=== PATIENT | female | born 1995 | race Caucasian/White ===

== ENCOUNTER 2017-07-31 07:24 | Inpatient (IN) | payer OTHER ==
[~2017-07-31] VITALS: Ht 154.9 cm; Wt 190.0 kg
[2017-07-31] MEDS ORDERED: PRENATABS FA T1 EACH PO (08:10)
[2017-07-31] MEDS ORDERED: FE C PLUS TABL1 EACH PO (08:10)
[2017-07-31] MEDS ORDERED: FE C TABLET1 EACH PO (08:11)
== END 2017-08-02 13:20 | DRG 767 ==
LOC: OB/GYN 07:24 → LDR 07:56 → OB/GYN 07:56
PROC: 10E0XZZ Delivery of Products of Conception, External Approach (ICD-10-PCS; principal; 2017-07-31)
PROC: 0KQM0ZZ Repair Perineum Muscle, Open Approach (ICD-10-PCS; 2017-07-31)
PROC: 10907ZC Drainage of Amniotic Fluid, Therapeutic from Products of Conception, Via Natural or Artificial Opening (ICD-10-PCS; 2017-07-31)
PROC: 4A033R1 Measurement of Arterial Saturation, Peripheral, Percutaneous Approach (ICD-10-PCS; 2017-07-31)
PROC: 4A1HXCZ Monitoring of Products of Conception, Cardiac Rate, External Approach (ICD-10-PCS; 2017-07-31)
PROC: 0UL70ZZ Occlusion of Bilateral Fallopian Tubes, Open Approach (ICD-10-PCS; 2017-08-01)
DX: O70.1 Second degree perineal laceration during delivery (principal); Z37.0 Single live birth; O99.824 Streptococcus B carrier state complicating childbirth; Z3A.39 39 weeks gestation of pregnancy; Z30.2 Encounter for sterilization